=== PATIENT | female | born 1935 | race Caucasian/White ===

== ENCOUNTER 2019-02-23 18:54 | Inpatient (IN) ==
[2019-02-23 20:01] LABS: URINE SOURCE CLEAN CATCH
--- NOTE | 2019-02-23 20:10 | Diag Imaging Result Doc PS360 ---
CT HEAD W/O CONTRAST - 02/23/2019 INDICATION: stroke like symptoms COMPARISON: 12/14/2013 FINDINGS: The ventricles and sulci are normal in size and contour. No intracranial mass or hemorrhage. There is stable mild cerebral white matter chronic microvascular disease. The skull is intact. The sinuses, mastoids, and middle ears are clear. IMPRESSION: No acute disease or change from prior. This exam was performed using automated exposure control, adjustment of mA or kV according to patient size, and/or use of iterative reconstruction technique Electronically signed by Keyshawn Mosley 02/23/2019 8:08 PM
[2019-02-23 20:13] LABS: BASO# 0.06 X1000 (0.0-0.2); BASO% 0.9 % (0.0-0.8); EOS# 0.21 X1000 (0.0-0.7); EOS% 3.1 % (0.0-10.0); HEMATOCRIT 41.5 % (37.0-47.0); HEMOGLOBIN 14.1 g/dL (12.0-16.0); LYMPH# 1.78 X1000 (1.2-3.4); LYMPH% 26.2 % (20.5-51.1); MCH 28.5 PG (27-31); MONO# 0.75 X1000 (0.11-0.59); NEUT% 58.8 % (42.2-75.2); PLT 255 X1000 (130-400); RBC 4.94 XMIL (4.2-5.4); RDW 13.3 % (11.5-14.5)
[2019-02-23 20:16] LABS: INR 0.9; PROTIME 12.2 Seconds (11.0-16.0)
[2019-02-23 20:16] LABS: UR AMPHETAMINES QUAL NONE DETECTED (NONE DETECT); UR BARBITUATES QUAL NONE DETECTED (NONE DETECT); UR BENZODIAZEPIN QUAL NONE DETECTED (NONE DETECT); UR CANNABINOIDS QUAL NONE DETECTED (NONE DETECT); UR COCAINE QUAL NONE DETECTED (NONE DETECT); UR METHADONE QUAL NONE DETECTED (NONE DETECT); UR OPIATES QUAL NONE DETECTED (NONE DETECT); UR OXYCODONE QUAL NONE DETECTED (NONE DETECT); UR PCP QUAL NONE DETECTED (NONE DETECT)
[2019-02-23 20:17] LABS: PTT 28.3 Seconds (22.3-41.8)
[2019-02-23 20:17] LABS: BILIRUBIN URINE NEGATIVE (NEGATIVE); BLOOD URINE NEGATIVE (NEGATIVE); COLOR STRAW; GLUCOSE URINE NEGATIVE (NEGATIVE); KETONE URINE NEGATIVE (NEGATIVE); LEUKOCYTES URINE SMALL (NEGATIVE); NITRITE URINE NEGATIVE (NEGATIVE); PROTEIN URINE NEGATIVE (NEGATIVE); SP GRAVITY URINE 1.005; TURBIDITY URINE CLEAR (CLEAR); UROBILINOGEN URINE NORMAL (NORMAL)
[2019-02-23 20:18] LABS: UR EPITHELIAL CELLS <10 /HPF (<10); URINE BACTERIA NEGATIVE /HPF; URINE RBC <10 /HPF (<10); URINE WBC <10 /HPF (<10)
--- NOTE | 2019-02-23 20:19 | Diag Imaging Result Doc PS360 ---
CHEST-PORTABLE - 02/23/2019 INDICATION: stroke like symptoms COMPARISON: 03/01/2016 FINDINGS: There is mild cardiomegaly and diffuse pulmonary vascular congestion. No infiltrates or edema. No pneumothorax or pleural effusion. IMPRESSION: Cardiomegaly and pulmonary vascular congestion. Electronically signed by Keyshawn Mosley 02/23/2019 8:17 PM
[2019-02-23 20:28] LABS: AGAP 7; ALB/GLOB RATIO 1.6; ALBUMIN 4.8 g/dL (3.5-5.0); ALKALINE PHOSPHATASE 138 U/L (32-104); BUN 9 mg/dL (8-22); CALCIUM 8.4 mg/dL (8.8-10.2); CHLORIDE 91 mmol/L (98-107); COSMO 258; CREATININE 0.8 mg/dL (0.5-0.9); ESTIMATED GFR > 60; GLUCOSE 98 mg/dL (70-104); GOT 31 U/L (10-30); GPT 19 U/L (10-36); POTASSIUM 3.9 mmol/L (3.5-5.1); SODIUM 129 mmol/L (136-145); TCO2 31 mmol/L (25-35); TOTAL BILIRUBIN 0.33 mg/dL (0.20-1.00); TOTAL PROTEIN 7.8 g/dL (6.3-8.3)
--- NOTE | 2019-02-23 20:57 | PROVIDER DOCUMENTATION ---
This chart was entered by Ashley Martinez Scribe, acting as scribe for Tomas Carter MD. HPI-Neurological Disorder - General Chief Complaint: STROKE ALERT Stated Complaint: EPISODE OF WEAKNESS, SLURRED SPEECH Time Seen by Provider: 02/23/19 19:16 Source: patient Allergies/Adverse Reactions: Patient Allergies Allergy/AdvReac Type Severity Reaction Status Date / Time prednisone AdvReac DIZZINESS Verified 02/24/16 12:45 Home Medications: Home Medication List Medication Instructions Recorded Confirmed Last Taken Type Atenolol 100 mg PO DAILY 12/14/13 02/29/16 02/29/16 03:20 History Atorvastatin Calcium 10 mg PO DIRECTED 12/14/13 02/29/16 02/28/16 14:00 History Levothyroxine Sodium 50 mcg PO DAILY 12/14/13 02/29/16 02/28/16 07:00 History Omeprazole 20 mg PO DAILY 12/14/13 02/29/16 02/22/16 History Cider Vinegar [Apple Cider Vinegar] 2 tsp PO DAILY 02/24/16 02/29/16 02/22/16 History Hydrochlorothiazide 25 mg PO DAILY 02/24/16 02/29/16 02/29/16 03:20 History Multivit-Minerals/Folic/Ginkgo 1 each PO DAILY 02/24/16 02/29/16 02/22/16 History [One Daily For Women 50+ Adv Tb] Acetaminophen [Tylenol] 1,000 mg PO Q6H #0 tablet 03/03/16 Unknown Rx Celecoxib [Celebrex] 200 mg PO BID #0 capsule 03/03/16 Unknown Rx Docusate Sodium [Colace] 100 mg PO BID #0 capsule 03/03/16 Unknown Rx Magnesium Hydroxide [Milk of 30 ml PO Q6H PRN PRN #0 udc 03/03/16 Unknown Rx Magnesia] Oxycodone I.r. [Oxy Ir] 5 - 10 mg PO Q3H PRN PRN #60 03/03/16 Unknown Rx capsule Pregabalin [Lyrica] 75 mg PO BID #60 capsule 03/03/16 Unknown Rx Rivaroxaban [Xarelto] 10 mg PO Q24H #14 tablet 03/03/16 Unknown Rx Tramadol [Ultram] 100 mg PO Q6H #120 tablet 03/03/16 Unknown Rx - History of Present Illness-Neuro Nature of Presenting Problem: Pt is 83/F presenting to ED after having episode where she sts she "could not get her words out" , after about 15-20 min. she sts that she was back to baseline., Pt does c/o some leg weakness. hx of tia about 4-5 yrs prior. No deficits from prior TIA. No other complaints at this time. Severity: reports: mild Onset/Duration: reports: 1-3 hours ago Timing: reports: gone now Context: reports: impaired speech Character of Altered Mental Status: reports: N/A Any recent trauma/injury?: reports: none Character of Deficits: reports: impaired speech New weakness or altered sensation location:: reports: none Cognitive Baseline: alert, oriented x3 Gait Baseline: walks without assistance Associated Symptoms: denies: headache, confusion, slurred speech, vomiting, weakness Similar Symptoms Previously?: No Recently seen or treated by another doctor?: No Review of Systems - Adult - REVIEW OF SYSTEMS - ADULT Constitutional: reports: no symptoms reported. denies: chills, fever Eyes: reports: no symptoms reported Ears, Nose, Mouth & Throat: reports: no symptoms reported Cardiovascular: reports: no symptoms reported. denies: chest pain Respiratory: reports: no symptoms reported. denies: cough, shortness of breath, wheezing Gastrointestinal: reports: no symptoms reported. denies: abdominal pain, nausea, vomiting Genitourinary: reports: no symptoms reported Musculoskeletal: reports: no symptoms reported Integumentary: reports: no symptoms reported Neurological: denies: dizziness/vertigo, headache/migraines, slurred speech Psychiatric: reports: no symptoms reported, anti-depressant use Hematologic/Lymphatic: reports: no symptoms reported Allergic/Immunologic: reports: no symptoms reported All Other Systems: Reviewed and Negative Past History - Adult - PAST MEDICAL HISTORY-ADULT Review of Records: reports: Old Records Reviewed, Nursing Assessment Review, Medications Reviewed, Social history reviewed & non-contributory. Major Childhood Illnesses: reports: denies history Cardiovascular: reports: HTN, hyperlipidemia Respiratory: reports: denies history Gastrointestinal: reports: denies history Obstetrical/Gynecological: reports: denies history Genitourinary: reports: denies history Musculoskeletal: reports: arthritis Neurological: reports: denies history Endocrine/Immune: reports: denies history, thyroid disorder Other Conditions: reports: denies history - PRIOR SURGERIES/PROCEDURES Surgical/Procedure History: reports: hysterectomy, other (bladder sling) - PRIOR HOSPITALIZATIONS Prior Hospitalizations: reports: for other non-related - IMMUNIZATION STATUS Childhood Immunizations: See Nurse Assessment Flu Vaccine: See Nurse Assessment - FAMILY HISTORY Family History: reviewed, not pertinent - SOCIAL HISTORY Smoking: denies, non-smoker Substance Use: none/never Alcohol Use Frequency: never Living Situation: family Physical Exam- Neurological - Physical Exam-Neuro Initial Vital Signs Reviewed: Yes General Appearance: appears well, alert, no apparent distress Eye Exam: bilateral eye: normal inspection, PERRL HENMT: moist mucous membranes, normal ENT inspection Head Injury: no evidence of injury Neck: non-tender, full range of motion, supple, normal inspection Respiratory: lungs clear Cardiovascular: regular rate, rhythm Extremity: normal range of motion, non-tender, normal gait, 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 Exam: normal hearing, normal speech, PERRL Motor/Sensory: no motor deficit, no sensory deficit, no pronator drift Neurologic: grossly normal Integumentary: normal color, warm/dry Psych/Mental Status: normal mood/affect, normal thought content, normal thought process, oriented x 3 - Glascow Coma Scale Best Eye Response: (4) open spontaneously Best Verbal Response: (5) oriented Best Motor Response: (6) obeys commands Total Glascow Score: 15 Progress - PLAN OF CARE/RESULTS Progress/Plan/Lab Results: Vital Signs - 8 hr 02/23/19 19:05 Temperature 96 F L Pulse Rate 82 Respiratory Rate 19 Blood Pressure 215/120 O2 Sat by Pulse Oximetry 100 Laboratory Results - last 24 hr 02/23/19 02/23/19 02/23/19 19:16 19:39 19:39 WBC RBC Hgb Hct MCV MCH MCHC RDW Std Deviation Plt Count MPV Immature Gran % (Auto) Neut % (Auto) Lymph % (Auto) [place] % (Auto) Eos % (Auto) Baso % (Auto) Immature Gran # (Auto) Neut # (Auto) Lymph # (Auto) [place] # (Auto) Eos # (Auto) Baso # (Auto) PT INR PTT (Actin FS) Sodium Potassium Chloride Carbon Dioxide Anion Gap BUN Creatinine Estimated GFR/1.73 m2 BUN/Creatinine Ratio Glucose POC Glucose 99 Calculated Osmolality Calcium Total Bilirubin AST ALT Alkaline Phosphatase Troponin T Total Protein Albumin Globulin Albumin/Globulin Ratio Urine Source CLEAN CATCH Urine Color STRAW Urine Turbidity CLEAR Urine pH 8.0 Ur Specific [place] 1.005 Urine Protein NEGATIVE Ur Glucose (Stick) NEGATIVE Ur Ketones (Stick) NEGATIVE Urine Blood NEGATIVE Urine Nitrite NEGATIVE Urine Bilirubin NEGATIVE Urobilinogen Dipstick NORMAL Urine Leukocytes SMALL A Urine WBC (Auto) <10 Urine RBC (Auto) <10 U Epithel Cells (Auto) <10 Urine Bacteria (Auto) NEGATIVE Urine Opiates Screen NONE DETECTED Ur Oxycodone Screen NONE DETECTED Ur Methadone, Qual NONE DETECTED Ur Barbiturates Screen NONE DETECTED Ur Phencyclidine Scrn NONE DETECTED Ur Amphetamines Screen NONE DETECTED U Benzodiazepines Scrn NONE DETECTED Urine Cocaine Screen NONE DETECTED U Cannabinoids Screen NONE DETECTED 02/23/19 02/23/19 02/23/19 19:43 19:43 19:43 WBC 6.80 RBC 4.94 Hgb 14.1 Hct 41.5 MCV 84.0 MCH 28.5 MCHC 34.0 RDW Std Deviation 13.3 Plt Count 255 MPV 10.0 Immature Gran % (Auto) 0.0 Neut % (Auto) 58.8 Lymph % (Auto) 26.2 [place] % (Auto) 11.0 H Eos % (Auto) 3.1 Baso % (Auto) 0.9 H Immature Gran # (Auto) 0.00 Neut # (Auto) 4.00 Lymph # (Auto) 1.78 [place] # (Auto) 0.75 H Eos # (Auto) 0.21 Baso # (Auto) 0.06 PT 12.2 INR 0.90 PTT (Actin FS) 28.3 Sodium 129 L Potassium 3.9 Chloride 91 L Carbon Dioxide 31 Anion Gap 7 BUN 9 Creatinine 0.8 Estimated GFR/1.73 m2 > 60 BUN/Creatinine Ratio 11 Glucose 98 POC Glucose Calculated Osmolality 258 Calcium 8.4 L Total Bilirubin 0.33 AST 31 H ALT 19 Alkaline Phosphatase 138 H Troponin T Total Protein 7.8 Albumin 4.8 Globulin 3.0 Albumin/Globulin Ratio 1.6 Urine Source Urine Color Urine Turbidity Urine pH Ur Specific [place] Urine Protein Ur Glucose (Stick) Ur Ketones (Stick) Urine Blood Urine Nitrite Urine Bilirubin Urobilinogen Dipstick Urine Leukocytes Urine WBC (Auto) Urine RBC (Auto) U Epithel Cells (Auto) Urine Bacteria (Auto) Urine Opiates Screen Ur Oxycodone Screen Ur Methadone, Qual Ur Barbiturates Screen Ur Phencyclidine Scrn Ur Amphetamines Screen U Benzodiazepines Scrn Urine Cocaine Screen U Cannabinoids Screen 02/23/19 19:43 WBC RBC Hgb Hct MCV MCH MCHC RDW Std Deviation Plt Count MPV Immature Gran % (Auto) Neut % (Auto) Lymph % (Auto) [place] % (Auto) Eos % (Auto) Baso % (Auto) Immature Gran # (Auto) Neut # (Auto) Lymph # (Auto) [place] # (Auto) Eos # (Auto) Baso # (Auto) PT INR PTT (Actin FS) Sodium Potassium Chloride Carbon Dioxide Anion Gap BUN Creatinine Estimated GFR/1.73 m2 BUN/Creatinine Ratio Glucose POC Glucose Calculated Osmolality Calcium Total Bilirubin AST ALT Alkaline Phosphatase Troponin T < 0.010 Total Protein Albumin Globulin Albumin/Globulin Ratio Urine Source Urine Color Urine Turbidity Urine pH Ur Specific [place] Urine Protein Ur Glucose (Stick) Ur Ketones (Stick) Urine Blood Urine Nitrite Urine Bilirubin Urobilinogen Dipstick Urine Leukocytes Urine WBC (Auto) Urine RBC (Auto) U Epithel Cells (Auto) Urine Bacteria (Auto) Urine Opiates Screen Ur Oxycodone Screen Ur Methadone, Qual Ur Barbiturates Screen Ur Phencyclidine Scrn Ur Amphetamines Screen U Benzodiazepines Scrn Urine Cocaine Screen U Cannabinoids Screen Orders Category Date Time Status Cardiac Monitoring DIRECTED Care 02/23/19 19:10 Active Finger Stick Blood Sugar (ED) DIRECTED Care 02/23/19 19:10 Active Oxygen Therapy- ED Nursing DIRECTED Care 02/23/19 19:10 Active Saline Loc NOW Care 02/23/19 19:10 Active CHEST-PORTABLE [RAD] Stat Exams 02/23/19 19:[address] HEAD W/O CONTRAST [CT] Stat Exams 02/23/19 19:10 Completed CBC WITH ELECTRONIC DIFF [HEME] Stat Lab 02/23/19 19:43 Completed COMPREHENSIVE METABOLIC PANEL [CHEM] Stat Lab 02/23/19 19:43 Completed PROTIME WITH INR [COAG] Stat Lab 02/23/19 19:43 Completed PTT [COAG] Stat Lab 02/23/19 19:43 Completed TROPONIN T Stat Lab 02/23/19 19:43 Completed URINALYSIS W/POSS RFLX CULT [URINALYSIS] Stat Lab 02/23/19 19:39 Completed URINE CULTURE [RM] Routine Lab 02/23/19 20:21 Received URINE DRUG SCREEN Stat Lab 02/23/19 19:39 Completed EKG [EKG] Stat Ther 02/23/19 19:10 Ordered Result Diagrams: 02/23/19 19:43 02/23/19 19:43 - EKG 1 Time of EKG reading by physician:: 19:16 EKG Read and Signed by:: Tomas Carter EKG Interpretation (*Must complete 3 of following elements*): Abnormal (Normal sinus rhythm, Left axis deviation, Left ventricular hypertrophy with QRS widening. Abnormal ECG) [place]: left QRS: normal - XRAY 1 XRAY: Bilateral XRAY Study: Chest Impression: Abnormal (CHEST-PORTABLE - 02/23/2019 INDICATION: stroke like symptoms COMPARISON: 03/01/2016 FINDINGS: There is mild cardiomegaly and diffuse pulmonary vascular congestion. No infiltrates or edema. No pneumothorax or pleural effusion. IMPRESSION: Cardiomegaly and pulmonary vascular congestion. Electronically signed by Keyshawn Mosley 02/23/2019 8:17 PM 02/23/192016 Interpreting Physician: Keyshawn Mosley MD Dictated Date/Time: 02/23/192016 cc: Tomas Carter MD; Ashok Edwards MD) - CT/MRI 1 CT Study: Head Impression: Normal (CT HEAD W/O CONTRAST - 02/23/2019 INDICATION: stroke like symptoms COMPARISON: 12/14/2013 FINDINGS: The ventricles and sulci are normal in size and contour. No intracranial mass or hemorrhage. There is stable mild cerebral white matter chronic microvascular disease. The skull is intact. The sinuses, mastoids, and middle ears are clear. IMPRESSION: No acute disease or change from prior. This exam was performed using automated exposure control, adjustment of mA or kV according to patient size, and/or use of iterative reconstruction technique Electronically signed by Keyshawn Mosley 8:08 PM 02/23/192007 Interpreting Physician: Keyshawn Mosley MD Dictated Date/Time: 02/23/192006 cc: Tomas Carter MD; Ashok Edwards MD) Comparison with other Films: no changes Departure - Departure Date of Disposition Decision: 02/23/19 Time of Disposition Decision: 20:56 DIAGNOSIS: TIA (transient ischemic attack) Disposition: ADMITTED INPATIENT 09 Certified Medical Emergency: Emergent Condition: Stable Referrals and Follow-Ups: Ashok Edwards MD [Primary Care Provider] - - Critical Care Note This patient required my direct & personal management of CC.: No Attestation - Physician/ AMADOR Attestation Patient care was provided by Advanced Practice Provider:: No The physician spent face to face time with patient:: Yes Advanced Practice Provider documentation review:: Supervising physician onsite and consulted in the evaluation and care of this patient. The physician did have a face to face encounter with the patient. - NIH Stroke Scale NIH Type: Initial Evaluation Level of Consciousness: 0-Alert LOC Questions (ask month and age): 0-Answers Both Correctly Best Gaze (horizontal eye movement): 0-Normal Visual (use finger movement, counting or visual threat): 0-No Visual Loss Facial Palsy (show teeth or raise eyebrows & close eyes tght: 0-Symmetrical Movement Motor Function-left arm: 0-Normal Motor Function-right arm: 0-Normal Motor Function-left le-Normal Motor Function-right le-Normal Limb Ataxia(dzvquh-faar-[id number], or heel to sherman): 0-No Ataxia Sensory(pin prick to face,arms,trunk,legs-compare side/side): 0-No Ataxia Best Language(name item/read sentence.Ex-Down to Earth): 0-No Aphasia Dysarthria(Pt read words or say words Ex.Mama,Tip-Top,Thanks: 0-Normal Lolita culation Extinction and Inattention: 0-Normal Modified Yuma Score Criteria: 0-no symptoms This chart was documented by the indicated scribe, (Ashley Martinez, Scribe) and accurately reflects the services I performed and decisions made by me, Tomas Carter MD, as attested by the provider's signature.
--- NOTE | 2019-02-23 21:08 | EKG Report ---
Test Performed on : 02/23/2019 7:16:16 PM Test Reason : Stroke like symptoms Blood Pressure : / mmHG Vent. Rate : 065 BPM Atrial Rate : 065 BPM P-R Int : 172 ms QRS Dur : 124 ms QT Int : 442 ms P-R-T Axes : 021 -36 020 degrees QTc Int : 459 ms Normal sinus rhythm. Left axis deviation Left ventricular hypertrophy with QRS widening Abnormal ECG When compared with ECG of 24-FEB-2016 13:08, T wave inversion now evident in Inferior leads Unconfirmed Result
[2019-02-23] MEDS ORDERED: LASIX IV ONE (21:31)
--- NOTE | 2019-02-23 22:14 | HISTORY AND PHYSICAL ---
REASON FOR ADMISSION: One-hour episode of expressive aphasia. HISTORY OF PRESENTING ILLNESS: Ms. Alessandra Lilly is an 83-year-old woman with past medical history of seasonal allergic rhinitis, asthma, hypothyroidism, hypertension, prior CVAs. Also has a history of hyperlipidemia and osteoarthritis. She reports that while she was on the phone today with her [id number], she said that she could not find the right the words the right words to come out of her mouth in response to her [id number]'s questions. She says she knew what she wanted to say but nothing was forthcoming. She then was able to voice to her ycgate-[id number] that she was worried and that she would need to call her sons. The patient says that to the best of her knowledge her speech was not slurred. She was standing at the time when this happened and felt both of her legs buckling, and she sat down. She denies any headaches, visual symptoms or difficulty swallowing. She says for the last 3 days she has been having transient, sharp epicardial pain lasting a few seconds. No associated anginal equivalent. She also reports that over the last couple of weeks she has been having mild dyspnea on exertion due to the change in weather, being very hot. She also has a history of oculonasal pruritus, consistent with seasonal allergic rhinitis which has been chronic. She denies any cough, PND, orthopnea, palpitations or lightheadedness. By the time one of her sons got there within an hour, he reports that his mother had no symptoms regarding her speech. No facial asymmetry. No focal weakness or sensory symptoms. Currently the patient concurs and says she is back to her baseline. REVIEW OF SYSTEMS: Twelve-system review was done. Positive findings per HPI, other than chronic knee pains. ALLERGIES: Prednisone and Levaquin. MEDICATIONS: Home medications have not been reconciled, but she does state she has been on a baby aspirin for quite a while. SOCIAL HISTORY: She lives alone. Does not smoke, drink or use illicit drugs. SURGICAL HISTORY: Right knee surgery, hysterectomy, bladder suspension, laser eye surgery. FAMILY HISTORY: Positive for heart disease, dementia, type 2 diabetes and stroke. DIAGNOSTIC DATA: CT head shows no acute intracranial findings, and only shows chronic small- vessel disease. Chest film: Cardiomegaly with mild pulmonary vascular congestion. EKG reviewed by me showed normal sinus rhythm with poor R-wave progression; left axis deviation; voltage criteria in aVL suggestive of LVH. LABORATORY DATA: White count is 6000, hemoglobin and hematocrit 14 and 41, platelets 255,000. Normal differential. Sodium is 129, BUN and creatinine are normal. Troponin is negative. Alkaline phosphatase 138, AST 31, ALT 19. PT, PTT are normal. UDS is negative. Urinalysis is clean. PHYSICAL EXAMINATION: GENERAL: A pleasant, elderly woman who is not in acute distress. VITAL SIGNS: Blood pressure 215/120, heart rate 82, respirations 19, temperature is 96 degrees, 100% on room air. HEENT: Head is normocephalic, atraumatic. Eyes: KUN, EOMI. She is anicteric and not pale. ENT and oropharynx exam is grossly normal. NECK: Supple. No JVD or carotid bruit. No thyromegaly. CHEST: Surprisingly clear, with good air entry in both lung escalera. CARDIOVASCULAR: First and second heart sounds are heard. No gallops, murmurs or rubs. Rhythm is regular. ABDOMEN: Slightly protuberant, soft. No masses or organomegaly noted. No areas of tenderness. Bowel sounds are hypoactive. RECTAL: Exam is deferred at this time. EXTREMITIES: No edema, clubbing or peripheral cyanosis. The patient has good distal pulse volume, regular. NEUROLOGIC: Cranial nerves 2-12 are intact. No gross focal deficits. No pronator drift. No tremor. SKIN: Intact. No breakdown, lesions or erythema. MUSCULOSKELETAL: Exam is grossly normal. ASSESSMENT: 1. Transient ischemic attack with expressive aphasia. 2. Hypertension. 3. Hyperlipidemia. 4. Seasonal allergic rhinitis. 5. Hyponatremia. 6. Seasonal asthma. 7. Mild pulmonary edema, probably secondary to hypertensive heart disease. PLAN: The patient will be given a low dose of steroids. The patient had complained of progressive shortness of breath with exertion, which initially I thought could be related to asthma, but in hindsight this could also be related to some mild pulmonary vascular congestion secondary to hypertensive heart disease. We will consider giving the patient onetime dose of breathing treatment. The patient was on aspirin and still had this spell. This means that an alternative antiplatelet regimen, i.e., Plavix will be prescribed. Because the patient may be taking omeprazole, I have recommended that this be changed to Protonix since omeprazole interferes with activation of Plavix to its more active form. Start the patient on high-dose statin 40 mg in view of her age. Echocardiogram, carotid Doppler studies and MRI will be done over the course of 2 days. The usual supportive measures, i.e., PT, speech therapy will be administered, and neurological consult will be made out due to the fact the patient has been having recurrence of CVA. We will appreciate input from Neurology for optimal therapy for this patient. Hyponatremia could be from hypovolemic, hypotonic hyponatremia versus euvolemic hypotonic etiology such as SIADH. We will order urine osmolality and spot urine to confirm or refute either. cc: MD Ashok Reilly MD
[2019-02-23] MEDS ORDERED: NORVASC PO ONE (22:35)
[2019-02-23] MEDS ORDERED: ZOFRAN IV PRN (22:35)
[2019-02-23] MEDS: LIPITOR PO SCH (23:20)
[2019-02-23] MEDS: LOVENOX SUBQ SCH (23:21)
[2019-02-23] MEDS: NORVASC PO SCH (23:22)
[2019-02-24] MEDS: PRILOSEC PO SCH (06:25)
[2019-02-24 07:10] LABS: BASO# 0.05 X1000 (0.0-0.2); BASO% 0.8 % (0.0-0.8); EOS# 0.24 X1000 (0.0-0.7); EOS% 3.9 % (0.0-10.0); HEMATOCRIT 40.5 % (37.0-47.0); HEMOGLOBIN 14.1 g/dL (12.0-16.0); LYMPH# 1.82 X1000 (1.2-3.4); LYMPH% 29.8 % (20.5-51.1); MCHC 34.8 g/dL (33-37); MCV 83.3 FL (81-99); MONO% 9.8 % (1.7-9.3); MPV 9.8 FL (7.4-10.4); NEUT# 3.39 X1000 (1.4-6.5); NEUT% 55.7 % (42.2-75.2); PLT 238 X1000 (130-400); RBC 4.86 XMIL (4.2-5.4); RDW 13.2 % (11.5-14.5)
[2019-02-24 07:42] LABS: AGAP 14; BUN 8 mg/dL (8-22); CALCIUM 8.8 mg/dL (8.8-10.2); CHLORIDE 93 mmol/L (98-107); COSMO 265; CREATININE 0.6 mg/dL (0.5-0.9); ESTIMATED GFR > 60; GLUCOSE 101 mg/dL (70-104); POTASSIUM 3.4 mmol/L (3.5-5.1); SODIUM 133 mmol/L (136-145); TCO2 26 mmol/L (25-35)
[2019-02-24] MEDS: PLAVIX PO SCH (08:59)
[2019-02-24] MEDS: NORVASC PO SCH ×2 (09:00→20:47)
[2019-02-24] MEDS: ASPIRIN PO SCH (09:00)
--- NOTE | 2019-02-24 15:28 | PROGRESS NOTE ---
DATE: 02/24/2019 Ms. Lilly is an 83-year-old woman with past medical history of seasonal allergic rhinitis, asthma, hypothyroidism, hypertension, and prior CVAs. Also had a history of hyperlipidemia and osteoarthritis. Reports that she was on the phone early in the day talking to her [id number]. She knew what she wanted to say but she could not get the right words come out. She knew what she wanted to say and she felt like her legs were a little bit weak, but really no other focal complaints. Wbgnyc-wo-wum called one of her sons and son states her speech was not slurred and that she was talking pretty well on the way over here and that was about an hour after their phone call. She said for the last 3 days, she has been having transient sharp epicardial pain lasting a few seconds. She has had no associated anginal equivalent. Reports the last couple weeks having mild dyspnea on exertion due to the change in the weather and being very hot. She also had a history of occasional pruritus consistent with seasonal allergies and rhinitis which has been chronic. Denies any cough, PND, orthopnea, palpitations, lightheadedness. She states that the symptoms resolved fairly quickly and she is not having trouble at the present time. She is swallowing okay and she would like to, I think, go back on a regular diet. PHYSICAL EXAMINATION: Exam today sitting at the bedside talking fluently and clearly. Temp 97.7 degrees, pulse 79, respirations 16, blood pressure 162/93. Blood pressures, the last three 198/105, 130/70, 162/93. Pupils are equal and round. No distended neck veins. Lungs are clear in all lung escalera. Cardiovascular exam regular rhythm and rate without murmur or S3. Abdomen is soft. Skin is warm and dry. Hematocrit 40, hemoglobin 14, platelet count is 258,000, white count 6100. Electrolytes unremarkable. Sodium 133, potassium 3.4, chloride 93, BUN 8, creatinine 0.6. Urine drug screen was completely negative. Urinalysis unremarkable. Head CT without contrast. No acute disease. Chest x-ray, cardiomegaly and a little bit of pulmonary congestion. ASSESSMENT AND PLAN: 1. Transient ischemic attack with expressive aphasia. 2. Hypertension. 3. Hyperlipidemia. 4. Seasonal allergic rhinitis. 5. Hyponatremia. 6. Seasonal asthma. 7. Mild pulmonary edema. 8. Pulmonary venous hypertension, probably secondary to hypertensive heart disease. CURRENT ORDERS: On Lipitor 40 mg at bedtime, Norvasc 2.5 mg b.i.d., aspirin 81 mg a day. Started on Plavix 75 mg a day and Lovenox 40 mg subcutaneous q. 24 hours. Prilosec 20 mg p.o. daily. REVIEW OF LABS: Unremarkable. Her lipid profile LDL was 103, HDL 63, TSH was 7.24, and I believe she has had a carotid Doppler done. cc: Ashok Edwards MD
--- NOTE | 2019-02-24 18:20 | ECHO REPORT ---
ORDER DATE: 02/23/2019 PROCEDURE: 2-D echocardiogram. ECHOCARDIOGRAPHIC MEASUREMENTS: 1. Interventricular septum 1.3, left ventricular posterior wall 1.2. 2. Diastolic diameter 4.7. 3. Aorta 4.5 cm, left atrium 3.5 cm. 4. Left ventricular diastolic diameter 4.7 cm. 5. Ascending aorta is dilated. 6. Mitral valve was normal. 7. Pulmonic valve was normal. There is trace pulmonary regurgitation. 8. Aortic valve leaflets are trileaflet. There is mild mitral regurgitation. There is left atrial enlargement. There is no aortic stenosis. There is mild aortic regurgitation. There is mild tricuspid regurgitation. Peak velocity across the tricuspid valve was 2.5 m/sec. 9. Pulmonary artery systolic pressure of 35 mmHg. Normal left ventricular cavity size. Estimated ejection fraction of 55 to 60 percent. There is diastolic dysfunction. 10. There is left ventricular hypertrophy. 11. There is no pericardial effusion or obvious intracardiac mass or thrombus seen. Would recommend a CT scan of the chest to evaluate the ascending aorta as it is dilated. cc: MD Anabella Anderson MD Allen J. Schmidt, MD
[2019-02-24] MEDS: TYLENOL PO PRN (20:47)
[2019-02-24] MEDS: LIPITOR PO SCH (20:47)
[2019-02-24] MEDS: LOVENOX SUBQ SCH (22:55)
[2019-02-25] MEDS: PRILOSEC PO SCH (06:04)
[2019-02-25] MEDS: TYLENOL PO PRN (07:48)
[2019-02-25] MEDS: ASPIRIN PO SCH (09:54)
[2019-02-25] MEDS: NORVASC PO SCH (09:54)
[2019-02-25] MEDS: PLAVIX PO SCH (09:54)
--- NOTE | 2019-02-25 10:03 | Diag Imaging Result Doc PS360 ---
EXAM: MRI BRAIN W/O CONTRAST 02/25/2019 HISTORY: CVA TECHNIQUE: T1 sagittal, axial, T2, FLAIR, DWI axial and coronal gradient echo COMMENT: There are no previous MRI studies available for comparison. There is no evidence of mass effect, bleed, or abnormal extra-axial fluid collection. There are scattered punctate and patchy areas of increased T2-weighted signal intensity in the white matter of both hemispheres notably in the frontal white matter. There is no evidence of restricted diffusion. IMPRESSION: Extensive chronic ischemic white matter change without evidence of acute ischemia. Electronically signed by Andrés Gross 02/25/2019 9:24 AM
--- NOTE | 2019-02-25 10:03 | Diag Imaging Result Doc PS360 ---
EXAM: CHEST-2 VIEWS HISTORY: Pulm edema TECHNIQUE: Chest two views COMPARISON: 02/23/2019 FINDINGS: The lungs are hyperexpanded. The heart is not enlarged. The vessels are not distended. There are no infiltrates. No pleural effusions. There are calcified mediastinal and hilar nodes. 50% compression fracture to the T12 vertebra. IMPRESSION: No pulmonary edema Electronically signed by Segundo Woods 02/25/2019 9:26 AM
[2019-02-25 12:14] VITALS: BP 128/76
--- NOTE | 2019-02-25 14:54 | CONSULTATION ---
DATE OF CONSULTATION: 02/25/2019 Ms. Lilly is 83 years old and she had transient difficulty expressing herself with speech a few days ago. She reports feeling well during the morning prior to this episode. She was having a telephone conversation with her sister. Suddenly, she had trouble putting her words together. She recognized the problem. She could understand what her sister said. She has complete memory for these events. She does not believe her speech was slurred. There was no vision disturbance. She did not have immediate headache. Soon, she felt a sense of weakness in both legs and a sense that she needed to sit. She sat and felt better. She did not lose consciousness or fall. She did not notice weakness in one leg more than the other. There was no focal weakness in the arms. The episode resolved in approximately 5 minutes. She reports having an episode of speech difficulty lasting about 5 minutes approximately 3 or 4 years ago. In retrospect, she believes that was more a case of slurred speech than trouble putting words together. There was no focal weakness then. She has not had any other periods of speech difficulty. She has not had trouble chewing or swallowing. She has an occasional minor or moderate headache but nothing more prominent. She has a history of hypertension, dyslipidemia, hypothyroidism, asthma. She takes her medicines as directed. She takes daily aspirin. She has never had diagnosis or treatment for diabetes mellitus. She does not smoke cigarettes. Workup here includes initial noncontrast CT showing nothing remarkable. Brain MRI today shows typical scattered micro-ischemic change, age-related changes, minimal atrophy, nothing focal or acute, nothing really remarkable. This was a noncontrast scan. Echocardiogram showed no source of embolus. I believe she has had carotid ultrasound done with report pending. She presented with systolic blood pressure of 215. Later, systolic blood pressures have ranged 130s to 170s. Heart rate has ranged 50s to 90s. She has been afebrile. Labs showed sodium 129, AST 31, alkaline phosphatase 138, TSH 7.24 (taking thyroid). Lipid profile was unremarkable. Urine drug screen was all negative. On exam, Ms. Lilly is awake, alert, attentive, cheerful, oriented, and appropriate. Speech is not dysarthric. Language function is intact on careful bedside testing of repeating, naming, comprehension, fluency, reading. I did not test handwriting. Calculation is good. Head and neck are unremarkable. There is no meningismus. Visual escalera are full tested grossly by confrontational finger counting. Extraocular movements are full. Facial motility is a little bit diminished bilaterally, but symmetric. Gag is intact. Tongue is midline. Palate is in the midline. Hearing is fair, at best. Shoulder shrug is equal. Strength is normal in the arms and legs. Limb tone is symmetric. She did well on [id number] testing bilaterally. I did not test her gait. She reports good pinprick and light touch appreciation symmetrically over the limbs. Proprioception is good at the great toe MTP joint bilaterally. Reflexes are 2+ at the left knee, trace at the right knee, trace at the ankles, 1+ symmetrically at the wrists. Plantar response is silent bilaterally. IMPRESSION: 1. Transient language disturbance. In light of her age and risk factors, this seems most likely a transient ischemic attack. Migraine is not excluded but seems less likely. If the carotid ultrasound is unremarkable, I do not think we will need anything else urgently. I encouraged her to be aggressive with management of her risk factors for cerebrovascular ischemic problems. We might suggest dual antiplatelet therapy with aspirin and clopidogrel together for 3 months if tolerated. 2. Asymmetric reflexes in the legs. I suspect this is related to her degenerative joint problems and prior surgery. Thanks for asking neurology to see Ms. Lilly. cc: MD Ashok Lynch III, MD MTDD
--- NOTE | 2019-02-25 15:59 | DISCHARGE SUMMARY ---
ADMISSION DATE: 02/23/2019 DISCHARGE DATE: Patient admitted on 02/23/2019, discharged on 02/25/2019. This is a patient of mine, an 83-year- old female with past medical history of seasonal allergic rhinitis, asthma, hypothyroidism, hypertension, prior CVAs, and also had a history of hyperlipidemia, osteoarthritis. Reports that she was on the phone earlier that day, talking to her [id number], and could not express her words. She knew what she wanted to say. Her sister called her son, and they came to the emergency room. Coming to the emergency room, apparently, son claimed that she was speaking fine. There were no focal deficits in her arms or noticed in her face or in her legs, and the speech deficit seemed to resolve. She was admitted for what sounds like a TIA (transient ischemic attack) with expressive aphasia, and this resolved. She had some hypertension, has a history of hyperlipidemia. She was on aspirin, so we added Plavix back to her regimen. CT of her head without contrast: No acute disease, no change from prior. Echocardiogram done showed no mural thrombus and her ejection fraction was 50% to 60%. She had mild mitral regurgitation. Left atrial enlargement. There was no aortic stenosis. Pulmonary artery pressure 35 mmHg. MRI of the brain done on 02/25/2019: Extensive chronic ischemic white matter change without any evidence of acute ischemia. Carotid velocities were done today and I think were reported back as unremarkable. Dr. Finney saw her. She had transient language disturbance. In light of her age and risk factors, it seems most likely a transient ischemic attack. Migraine is not excluded, but seems unlikely. If the carotid ultrasound unremarkable and the report was unremarkable, we will make sure she is on a lipid agent and we will add dual anti-platelet agent using Plavix. So, plan to discharge her today. We will have her on Norvasc 2.5 mg b.i.d. Lipitor 40 mg at bedtime. Plavix 75 mg a day. Prilosec 20 mg a day. We will have her stop the meloxicam. She can take a multivitamin. We will continue her losartan/hydrochlorothiazide 50/12.5 once a day as well. Colace 100 mg b.i.d. Calcium 500 mg a day. Atorvastatin 10 mg p.o. daily. Atenolol 25 mg a day. cc: Ashok Edwards MD
--- NOTE | 2019-02-27 08:15 | Carotid Study ---
DATE: 02/23/2019 REFERRING PHYSICIAN: Anabella Cochran MD READING PHYSICIAN: Carlos Leija MD RELIGION TEACHER: Tori INDICATION: Transient ischemic attack. COMPARISON STUDY: There is no comparison study. FINDINGS: There was a mild amount of soft plaque in the distal right common carotid artery. There were no hemodynamically significant stenoses. There was no increased velocity or turbulent flow. The percent stenosis is 0 to 39% percent bilaterally. INTERPRETATION: Mild carotid artery plaque as described above, which is not hemodynamically significant. cc: MD Anabella Moncada MD Allen J. Schmidt, MD
== END 2019-02-25 17:30 | disposition home or self-care (01) | DRG 69 ==
LOC: ED 18:54 → SUATTDRO 21:42 → 4N 21:42 → 2N 22:57
PROVIDERS: ADMIT Emergency Medicine; ATTEND Emergency Medicine